=== PATIENT | female | born 1970 | race Caucasian/White ===

== ENCOUNTER 2018-05-21 09:36 | Emergency (ER) | payer SELFPAY ==
[~2018-05-21] VITALS: Ht 167.6 cm; Wt 83.9 kg
[2018-05-21 09:46] VITALS: BP 130/81
== END 2018-05-21 11:32 | disposition left against medical advice (07) ==
LOC: ER 09:36
DX: M79.651 Pain in right thigh (principal); Z88.6 Allergy status to analgesic agent; Z88.8 Allergy status to other drugs, medicaments and biological substances; Z53.29 Procedure and treatment not carried out because of patient's decision for other reasons
CPT/HCPCS: 73562; 73630

== ENCOUNTER 2018-05-26 21:28 | Emergency (ER) | payer SELFPAY ==
[~2018-05-26] VITALS: Ht 167.6 cm; Wt 90.7 kg
[2018-05-26 21:50] VITALS: BP 129/68
== END 2018-05-27 00:39 | disposition home or self-care (01) ==
LOC: ER 21:30
DX: M25.061 Hemarthrosis, right knee (principal); Z88.6 Allergy status to analgesic agent; Z88.8 Allergy status to other drugs, medicaments and biological substances
CPT/HCPCS: 73700

== ENCOUNTER 2021-03-14 15:38 | Emergency (ER) | payer OTHER ==
[~2021-03-14] VITALS: Ht 167.6 cm; Wt 97.1 kg
[2021-03-14 20:20] VITALS: BP 114/73
== END 2021-03-14 20:29 | disposition home or self-care (01) ==
LOC: ER 15:40
DX: L03.032 Cellulitis of left toe (principal); E66.9 Obesity, unspecified; E11.9 Type 2 diabetes mellitus without complications; E78.00 Pure hypercholesterolemia, unspecified; Z68.34 Body mass index [BMI] 34.0-34.9, adult; Z88.6 Allergy status to analgesic agent; Z88.5 Allergy status to narcotic agent

== ENCOUNTER 2023-02-21 02:35 | Emergency (ER) | payer OTHER ==
[~2023-02-21] VITALS: Ht 167.6 cm; Wt 86.3 kg
[2023-02-21 06:49] VITALS: BP 115/60; PULSE 60; RESP 16; TEMP 97.7; O2SAT 98
[2023-02-21] MEDS ORDERED: ACET-1304 PO (06:51)
[2023-02-21] MEDS ORDERED: CEPH500C PO (06:51)
== END 2023-02-21 07:20 | disposition home or self-care (01) ==
LOC: ER 02:40
DX: S61.412A Laceration without foreign body of left hand, initial encounter (principal); E11.9 Type 2 diabetes mellitus without complications; Z88.8 Allergy status to other drugs, medicaments and biological substances; Z79.1 Long term (current) use of non-steroidal anti-inflammatories (NSAID); Z79.899 Other long term (current) drug therapy; W26.0XXA Contact with knife, initial encounter; Y93.89 Activity, other specified; Y92.89 Other specified places as the place of occurrence of the external cause; Y99.8 Other external cause status
CPT/HCPCS: 12001